=== PATIENT | male | born 1985 | race Caucasian/White ===

== ENCOUNTER 2022-07-05 09:59 | Emergency (ER) | payer SELFPAY ==
[~2022-07-05] VITALS: Ht 175.3 cm; Wt 86.2 kg
[2022-07-05 10:06] VITALS: BP 144/79
--- NOTE | 2022-07-05 10:07 | NUR ---
PT AMBULATED TO BED 4
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
[2022-07-05] MEDS ORDERED: IBUP-2213 PO (12:19)
[2022-07-05 12:39] VITALS: BP 130/75
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
--- NOTE | 2022-07-05 12:44 | NUR ---
Patient discharged with v/s stable. Written and verbal after care instructions FOR [facility] given and explained. Patient alert, oriented and verbalized understanding of instructions. Ambulatory with steady gait. All questions addressed prior to discharge. ID band removed. Patient advised to follow up with PMD. Rx of IBUPROFEN given. . Opportunity to ask questions provided and answered.
--- NOTE | 2022-07-05 12:52 | NUR ---
The patient's care was reviewed and supervised by [facility], RN.
== END 2022-07-05 12:44 | disposition home or self-care (01) ==
LOC: MED 09:59
DX: S61.214A Laceration without foreign body of right ring finger without damage to nail, initial encounter (principal); S61.216A Laceration without foreign body of right little finger without damage to nail, initial encounter; Z79.1 Long term (current) use of non-steroidal anti-inflammatories (NSAID); W45.8XXA Other foreign body or object entering through skin, initial encounter; Y93.89 Activity, other specified; Y92.89 Other specified places as the place of occurrence of the external cause; Y99.8 Other external cause status
CPT/HCPCS: 99283

== ENCOUNTER 2022-07-24 08:19 | Emergency (ER) | payer SELFPAY ==
[~2022-07-24] VITALS: Ht 165.1 cm; Wt 94.3 kg
[~2022-07-24 08:19] MED LIST: IBUP-2213 PO
[2022-07-24 08:29] VITALS: BP 146/87
--- NOTE | 2022-07-24 09:20 | NUR ---
AMB TO [facility]
--- NOTE | 2022-07-24 09:23 | NUR ---
DR MENESES AT PT SIDE FOR EVAL AND SUTURE REMOVAL
--- NOTE | 2022-07-24 09:27 | NUR ---
37 Y/O MALE BIB SELF PRESENTS TO ED FOR SUTURE REMOVAL OF SUTURES IN THE RIGHT RING FINGER AND [id number] STITCHES, PLACED ON 07/05/22. NO REDNESS, SWELLING, DEHISCENCE, PUS NOTED. PT DENIES ANY FEVERS, CHILLS NKA PMH: DENIES
--- NOTE | 2022-07-24 09:41 | NUR ---
Patient discharged with v/s stable. Written and verbal after care instructions ABOUT SUTURE REMOVAL CARE given and explained. Patient verbalized understanding. Ambulatory with steady gait. All questions addressed prior to discharge. Advised to follow up with PMD.
== END 2022-07-24 09:41 | disposition home or self-care (01) ==
LOC: MED 08:19
DX: S61.214D Laceration without foreign body of right ring finger without damage to nail, subsequent encounter (principal); S61.216D Laceration without foreign body of right little finger without damage to nail, subsequent encounter; W26.9XXD Contact with unspecified sharp object(s), subsequent encounter
CPT/HCPCS: 99281